=== PATIENT | female | born 1950 | race Caucasian/White ===

== ENCOUNTER 2019-12-03 09:58 | Day surgery (SDC) | payer MEDICARE ==
[~2019-12-03] VITALS: Ht 162.6 cm; Wt 53.6 kg
[2019-12-03] MEDS ORDERED: MIDAZolam 5mg/5ml vial ONE (10:00)
[2019-12-03] MEDS ORDERED: fentaNYL/PF 50MCG/1 ML 2ML syringe ONE (10:00)
[2019-12-03] MEDS ORDERED: LIDOcaine Viscous 15ml cup ONE (10:00)
[2019-12-03 10:04] VITALS: BP 145/63
[2019-12-03] MEDS ORDERED: SULF500T59 PO (10:09)
[2019-12-03] MEDS ORDERED: SIMV-42 PO (10:09)
[2019-12-03] MEDS ORDERED: LORA-268 PO (10:10)
[2019-12-03] MEDS ORDERED: QUET25TA PO (10:11)
[2019-12-03] MEDS ORDERED: METF500T PO (10:11)
[2019-12-03] MEDS ORDERED: MELA5TAB12 PO (10:12)
[2019-12-03] MEDS ORDERED: [UNRECOGNIZED DRUG - OTHER] (10:13)
[2019-12-03] MEDS ORDERED: LACT1CAP75 PO (10:14)
[2019-12-03] MEDS ORDERED: CHOL500050 PO (10:15)
[2019-12-03] MEDS ORDERED: KRATOM (10:16)
[2019-12-03] MEDS ORDERED: ASCO500C17 PO (10:17)
[2019-12-03] MEDS ORDERED: ACET-1025 PO (10:18)
[2019-12-03] MEDS ORDERED: OMEP20TA23 PO (10:19)
[2019-12-03] MEDS ORDERED: METO5TAB85 PO (10:20)
[2019-12-03 11:04] VITALS: BP 113/62
[2019-12-03 11:14] VITALS: BP 112/57
[2019-12-03 11:24] VITALS: BP 114/62
[2019-12-03 11:34] VITALS: BP 113/57
== END 2019-12-03 11:52 | disposition home or self-care (01) ==
LOC: GI LAB 09:58
PROVIDERS: ATTEND Internal Medicine Gastroenterology
DX: R10.12 Left upper quadrant pain (principal); K59.00 Constipation, unspecified; K57.30 Diverticulosis of large intestine without perforation or abscess without bleeding; K44.9 Diaphragmatic hernia without obstruction or gangrene; K31.4 Gastric diverticulum; K91.89 Other postprocedural complications and disorders of digestive system
CPT/HCPCS: 43239; 43245; 45378; C1726; G0500; J2250; J3010; J7040; 99152; A4620